=== PATIENT | male | born 1965 | race Caucasian/White ===

== ENCOUNTER 2017-02-12 07:54 | Day surgery (SDC) | payer OTHER ==
[~2017-02-12] VITALS: Ht 170.2 cm; Wt 68.0 kg
[~2017-02-12 07:54] MED LIST: 0.9% Sodium Chloride 1,000 ML IV SCH; ASPI-973 PO; ATOR80TA77 PO; ATRINH INH; LISI10TA2 PO; METO100T3 PO; NITR0.4T SL; OMEP-113 PO; OMEP20CA11 PO; Sodium Chloride LOK Flush 10 mL Syringe IV PRN; TELM80TA5 PO; fentaNYL-PF 50 mCg/mL 2 mL Inj IVPUSH PRN
[2017-02-12 08:06] VITALS: BP 174/99; PULSE 74; RESP 14; O2SAT 98
[2017-02-12] MEDS ORDERED: AMLO10TA5 PO (08:11)
[2017-02-12] MEDS ORDERED: HYDR12.5 PO (08:12)
[2017-02-12] MEDS ORDERED: Lactated Ringer's 500 ML IV PRN (09:04)
[2017-02-12] MEDS ORDERED: Lactated Ringer's 1,000 ML IV SCH (09:04)
[2017-02-12] MEDS ORDERED: MetoCLOpramide 5 mg/mL 2 mL Inj IVPUSH PRN (09:05)
[2017-02-12] MEDS ORDERED: Ondansetron 2 mg/mL 2 mL Inj IVPUSH PRN (09:05)
[2017-02-12] MEDS ORDERED: fentaNYL-PF 50 mCg/mL 2 mL Inj IVPUSH PRN (09:05)
[2017-02-12] MEDS ORDERED: EPHEDrine Sulfate 50 mg/mL Inj IVPUSH PRN (09:05)
[2017-02-12] MEDS ORDERED: Dexamethasone 4 mg/mL Inj IVPUSH PRN (09:05)
[2017-02-12] MEDS ORDERED: HYDROmorphone 1 mg/mL Inj IVPUSH PRN (09:05)
[2017-02-12] MEDS ORDERED: Labetalol 5 mg/mL 4 mL Inj IV PRN (09:05)
[2017-02-12] MEDS ORDERED: Phenylephrine 10,000 mCg/mL Inj IVPUSH PRN (09:05)
--- NOTE | 2017-02-12 09:06 | PCM.HPANE ---
Patient Data Date of Service: Feb 12, 2017 (09) Surgeon Admitting Provider: Attending Provider:Flynn Menon MD Primary Care Physician:Aracelis Other Provider: Reason for Visit Hx Of Colonic Polyps Ht/WT & BMI Height (Feet): 5 Height (Inches): 7 Weight (Kilograms): 68.04 Body Mass Index 23.00 Allergies Coded Allergies: naproxen (Verified Allergy, Intermediate, GI upset, 02/14/14) Erythromycin [place] (Verified Allergy, Unknown, UNKNOWN, 02/14/14) Sulfa (Sulfonamide Antibiotics) (Verified Allergy, Unknown, UNKNOWN, ) hydrocodone (Verified Adverse Reaction, Severe, HYPERACTIVITY,INSOMNIA, 02/14/14) Past Anesthesia History Anesthesia History: Denies:: Abnormal Airway, Anesthesia Reactions, Difficult Intubation, Fam Anesthesia Reaction, Fam Malignant Hypertherm, Malignant Hyperthermia Diabetes History Hx Diabetes?: No MRSA MRSA: No Medications Blood Thinner: Aspirin Last Dose Blood Thinner: Feb 11, 2017 Home Meds Incl Beta Zaid: Yes Date Beta Zaid Taken: Feb 12, 2017 Time Beta Zaid Taken: 0545 Reported Medications Hydrochlorothiazide 12.5 Mg Hidnkbo62.5 Mg PO DAILY 30 Days Ref 0 02/12/17 Amlodipine (Norvasc)10 Mg Nipfbh39 Mg PO DAILY Ref 0 02/12/17 Telmisartan 80 Mg Seusgr23 Mg PO DAILY 02/11/17 Aspirin 81 Mg Ghfntp79 Mg PO DAILY Ref 0 02/11/17 Lisinopril 10 Mg Tablet5 Mg PO DAILY 0 Days Ref 0 02/09/14 Atorvastatin Calcium 80 Mg Vgecyk76 Mg PO DAILY 30 Days Ref 0 12/13/13 Omeprazole Magnesium (Omeprazole)20 Mg Capsule.dr20 Mg PO DAILYAC 30 Days Ref 0 12/13/13 Nitroglycerin SL (Nitrostat)0.4 Mg Tab.subl0.4 Mg SL Q5MIN PRN For Chest Pain # 1 BOTTLE 12/13/13 Metoprolol Tartrate 100 Mg Oruqtd302 Mg PO BIDWM 30 Days Ref 0 12/13/13 Ipratropium [place] (Atrovent HFA)200 Puff/12.9 Gm Inhaler2 Puff INH PRN PRN For Shortness of Breath #1 INH 12/13/13 Discontinued Reported Medications Omeprazole 20 Mg Capsule.dr20 Mg PO DAILY PRN PRN 30 Days Ref 0 02/14/14 History History of ENT Problems?: Yes HEENT History: Positive for:: Sinus Problem Denies:: Abnormal Airway Cataracts Difficult Intubation Dysphagia Hearing Problem Denture Type: Full- Upper Partial- Lower Teeth Condition: Missing Teeth Other HEENT Pertinent History: LEFT DENTURES AT HOME Hx of Heart Problems?: Yes Cardiovascular History: Positive for:: Atrial Fibrillation Cardiac Surgery (HEART CATH W/ STENT 2000,2007 HEART CATH 2002) Chest Pain ([place]) Hypertension Irregular Heartbeat (hx non sustained vtach, FREQ PVC'S ON EKG "PALPITATIONS ") Denies:: AICD Heart Murmur (ECHO 11/2013) Pacemaker Valvular Heart Disease Hx of Respiratory Problem?: Yes Respiratory History: Positive for:: Pneumonia Denies:: Asthma COPD Cough Hemoptysis Tuberculosis Use of C-PAP Machine Other Resp Pertinent History: STATES 'ISSUE IN R LUNG', JUST HAD A SCAN DONE A FEW DAYS AGO. Hx Neurologic Problems?: No Neurological History: Positive for:: CVA (TIA X2, ) Denies:: Dementia Hx of GI Problems?: Yes Hx of Problems?: No Genitourinary History: Denies:: HX of Hemodialysis Kidney Stones Urinary Tract Infection HX of Peritoneal Dialysis: No Male Hx: Denies:: Prostate Problems Scrotal Mass Testicular Surgery Skin History: Denies:: History Skin Disorders? Pressure Ulcers Hx Musculoskeletal Problems?: No Hx of Psycho/Social Problems?: Yes Psycho Social History: Positive for:: Hx Depression Denies:: Anxiety Hx Surgeries?: Yes (ABLATION/STENT, ANGIOPLASTY,TONSIL, HEMORROIDECTOMY) Hx Any Other Health Problems?: No Other History: Positive for:: Hospitalization (STENT PLACEMENT x2, angioplasty x2) Denies:: Cancer Endocrine Disease Thyroid Disease History Blood Transfusions: Denies:: Blood Transfusions Hx Diabetes: No Hx Alcohol Use: YesHx Substance Use: Yes (marijuana)Have You Smoked inLast 12 mo: Yes Stop/Bang Treated for Sleep Apnea?: No Do You Have a CPAP Machine?: No S-Snoring: Do You Snore Loudly: No T-Tired: feel tired, fatigued: No O-Obsered: Observed not breath: No P-Blood Pressure: treated: Yes B- Body Mass Index > 35 kg/m2: No A- Age over 50: Yes N- Neck Large Circumference: No G- Gender Male: Yes RAYSHAWN Total Score: 3 RAYSHAWN Risk Assessment: Low Risk, <3 Yes Risk Assessment Category Category 1A: Patient has history of documented sleep apnea, and HAS NOT received any narcotic, sedative or anesthesia administration during this stay. Category 1B: Patient has history of documented sleep apnea, and HAS received any narcotic , sedative or anesthesia administration during this stay Category 2: Patient has SUSPECTED Obstructive Sleep Apnea, and HAS received any narcotic , sedative or anesthesia administration during this stay. Category 3: Patient has SUSPECTED Obstructive Sleep Apnea and HAS NOT received narcotic, sedative or anesthesia administration during this stay. Category 4: Outpatient in Procedural Areas with known sleep apnea or who screen positive for High Risk via the STOP/BANG questionnaire. Exam Exam Vital Signs Vital Signs Date Time Temp Pulse Resp B/P Pulse Ox O2 Delivery O2 Flow Rate FiO2 02/12/17 08:06 74 14 174/99 98 Room Air General Appearance: Alert, Oriented X3 HEENT/AIRWAY: MP 1 Lungs: Clear to Auscultation Heart: Exam Unremarkable Meds/Labs/Diagnostics Admission Meds Current Medications Sodium Chloride (Normal Saline) 1,000 ml @ 10 mls/hr Q24H IV Last administered on 02/12/17t 08:21; Start 02/12/17 at 06:00 Plan Impression Patient chart reviewed, patient interviewed and anesthestic plan with risks, benefits, and alternatives discussed, and informed consent obtained. NPO per Anesth. Guidelines: Yes ASA Physical Status: ASA3 Severe Disease Anesthetic Plan: GA Bene/Risks/Altern/Consents: Yes HP Complete Prior to Induction: Yes Nicolás Godinez MD Feb 12, 2017 09:06
[2017-02-12] MEDS ORDERED: VARE1TAB22 PO (09:08)
--- NOTE | 2017-02-12 09:41 | PCM.ANEP1 ---
Post Anesthesia PACU Phase 1 Assessment Vital Signs 111/71, 72, 10, 98% Vital Signs Date Time Temp Pulse Resp B/P Pulse Ox O2 Delivery O2 Flow Rate FiO2 02/12/17 08:06 74 14 174/99 98 Room Air Anesthetic Administered: GA Level of Alertness: Awake, talking MANRIQUEZ's with Equal Strength: Yes Pain: No Nausea or Vomiting: No CV Function & Hydration Stable: Yes Airway Device: none Oxygen Delivery: Room Air Lungs: Clear to Auscultation Dermatome Level: Full Sensation Summary easy sedation PACU Phase 2 Assessment Complications: No Follow up Care: No Patient Instructions Provided: N/A Nicolás Godinez MD Feb 12, 2017 09:41
[2017-02-12 09:43] VITALS: BP 111/71; PULSE 77; RESP 16; O2SAT 98
[2017-02-12 09:51] VITALS: BP 123/77; PULSE 73; RESP 14; O2SAT 98
[2017-02-12 09:52] VITALS: BP 137/88; PULSE 70; RESP 16; O2SAT 98
--- NOTE | 2017-02-12 09:58 | ENDO ---
[address] [address] ENDOSCOPY PROCEDURE PATIENT: LUIS WINSTON : 1965 MR#: [id number] ADMIT: 02/12/2017 JOB ID: [id number] PROCEDURE: Colonoscopy with hot snare polypectomy, cold snare polypectomy and cold forceps polypectomy. INDICATIONS: A 51-year-old male with a personal history of colon polyps, returning for surveillance. EQUIPMENT: [employer]-[id number]. SEDATION: Monitored anesthesia as provided by Dr. Nicolás Godinez. COMPLICATIONS: None identified. BOWEL PREPARATION: Fair, adequate exam. PROCEDURE INFORMATION: After the risks and benefits were explained, written and verbal informed consent was obtained. The patient was brought into the endoscopy suite and placed into the left lateral decubitus position. Sedation was achieved as above. A digital rectal examination accomplished. Mild to moderate internal hemorrhoids were again noted. The scope was introduced into the rectum and advanced to the cecum as identified by the appendiceal orifice and ileocecal valve. The scope was slowly withdrawn to carefully examine the mucosa for any defects or lesions. Retroflexed views were avoided in the rectum. Multiple direct views were made through the dentate line for exclusion of pathology. The colon was decompressed, the scope removed from the patient who tolerated the procedure well. FINDINGS: There were three polyps removed from the mid colon, one by way of cold snare, one by way of hot snare and one by way of cold forceps. The largest polyp was perhaps 5-6 mm. In the rectosigmoid, there were a couple of polyps removed by way of hot snare. These appeared highly suggestive of hyperplastic histology. No other significant pathology was seen throughout. ENDOSCOPIC DIAGNOSIS: 1. Polyps. 2. Internal hemorrhoids. RECOMMENDATIONS: 1. Await histopathology. 2. If three or more polyps are adenomatous, then repeat colonoscopy in three years' time. Otherwise, repeat in five years.
== END 2017-02-12 23:59 | disposition home or self-care (01) ==
LOC: END 07:54
PROVIDERS: ATTEND Internal Medicine Gastroenterology
DX: Z12.11 Encounter for screening for malignant neoplasm of colon (principal); D12.3 Benign neoplasm of transverse colon; K63.5 Polyp of colon; K64.8 Other hemorrhoids; Z86.010 Personal history of colon polyps; I25.119 Atherosclerotic heart disease of native coronary artery with unspecified angina pectoris; Z95.5 Presence of coronary angioplasty implant and graft; I10 Essential (primary) hypertension; I73.9 Peripheral vascular disease, unspecified; I25.2 Old myocardial infarction; E78.5 Hyperlipidemia, unspecified; R00.2 Palpitations; R00.0 Tachycardia, unspecified; Z87.891 Personal history of nicotine dependence; Z79.82 Long term (current) use of aspirin; Z79.51 Long term (current) use of inhaled steroids
CPT/HCPCS: 45380; 45385; J7030